=== PATIENT | female | born 1965 | race Two or more races ===

== ENCOUNTER → 2017-01-06 | Outpatient (CLI) | payer OTHER ==
--- NOTE | 2017-01-06 11:48 | RADRPT ---
EXAM DATE/TIME: 01/06/2017 11:23 [place] COMPARISON: No previous studies available for comparison. INDICATIONS : Pain Left ankle lateral side. No known injury MEDICAL HISTORY : None. SURGICAL HISTORY : None. ENCOUNTER: Initial ACUITY: 1 month PAIN SCORE: 8/10 LOCATION: Left lateral Ankle FINDINGS: No definite fractures, or dislocations are identified. No definite lytic or sclerotic lesion is seen . The joint spaces are well maintained. CONCLUSION: Unremarkable study. Ricardo Dawkins MD on January 06, 2017 at 11:46 Board Certified Radiologist. This report was verified electronically.
== END ==
LOC: HRAD 11:08
PROVIDERS: ATTEND Family Medicine
DX: M25.572 Pain in left ankle and joints of left foot (principal)
CPT/HCPCS: 73610